=== PATIENT | female | born 1980 | race Caucasian/White ===

== ENCOUNTER 2016-06-11 23:44 | Emergency (ER) | payer OTHER ==
[~2016-06-11] VITALS: Ht 165.1 cm; Wt 174.3 kg
[~2016-06-11 23:44] MED LIST: ADVAIR 100-501 EACH IH; ADVAIR 250/501 DISK IH; ALBUTEROL RESCUE IH; ALBUTEROL SULF8.5 GM IH; ALBUTEROL17 GM IH; ALBUTEROL2.5 MG/0.5 IH; ATIVAN1 MG PO; BACTRIM,SEPT1 TABLET PO; BUPROPION XL150 MG PO; CEFDINIR300 MG PO; CITALOPRAM HBR20 MG PO; CLARITIN10 M3 PO; Ceftin PO; EFFEXOR XR37.5 MG PO; EFFEXOR75 MG PO; ENDOCET 5-3251 EACH PO; FLEXERIL10 MG PO; FLOVENT 22120 INHALA IH; IBUPROFEN800 MG PO; IRON325 M1 PO; IRON325 MG PO; KEFLEX500 MG PO; LABETALOL HCL100 MG PO; LABETALOL HCL200 MG PO; LEVAQUIN750 MG PO; MACRODANTIN100 MG PO; MOBIC15 MG PO; MOTRIN400 MG PO; MOTRIN600 MG PO; NAPROSYN500 MG PO; NITROFURANTOIN100 M3 PO; ORTHO TRI-CY1 TABLE1 PO; PEN-VEE K,VEET500 MG PO; PREDNISONE20 MG PO; PRENATAL TABLE1 EAC3 PO; PRILOSEC40 MG PO; PRINIVIL20 MG PO; PROMETHAZINE HC25 M1 PO; REGLAN5 MG PO; TAMIFLU75 MG PO; TESSALON PERLE100 MG PO; TRAZODONE HCL50 MG PO; ULTRAM50 MG PO; VITAMIN B-12 SC; VITAMIN D400 UNI4 PO; VOLTAREN75 MG PO; ZANTAC75 M1 PO; ZOFRAN ODT4 MG PO; ZOFRAN4 MG PO; ZOLPIDEM TARTRAT5 MG PO; Zithromax PO; [UNRECOGNIZED DRUG - REMARK]
[2016-06-12 00:43] LABS: EOSINOPHIL (%) 1.9 % (0-5); EOSINOPHIL COUNT 0.1 K/uL (0-0.3); HEMATOCRIT 35.2 % (36.0-46.0); IMMATURE GRANULOCYTE (%) 0.4 % (0.0-0.7); INSTRUMENT ABS NEUTROPHIL CT 3.2 K/uL; LYMPHOCYTE COUNT 1.7 K/uL (1.0-2.8); MCH 29.1 PG (29.0-34.0); MCHC 31.5 G/DL (30.0-36.0); MCV 92.4 FL (83-99); MEAN PLAT.VOLUME 11.4 uM^3 (9.5-12.4); MONOCYTE (%) 4.2 % (3-12); MONOCYTE COUNT 0.2 K/uL (0-0.8); NEUTROPHIL (%) 60.6 % (45-76); NEUTROPHIL COUNT 3.2 K/uL (1.8-6.4); PLATELET COUNT 206 K/uL (156-360); RBC DIS.WIDTH-CV 14.2 % (11.8-14.6); RBC DIS.WIDTH-SD 48.1 % (39-53); RED BLOOD COUNT 3.81 M/uL (3.80-5.20); WHITE BLOOD COUNT 5.2 K/uL (4.1-10.2)
[2016-06-12 00:54] LABS: D-DIMER ELISA 0.46 mg/L FEU (< 0.57)
[2016-06-12 01:04] LABS: CHLORIDE 108 mEq/L (99-109); POTASSIUM 4.1 mEq/L (3.7-5.4); SODIUM 136 mEq/L (136-147)
[2016-06-12 01:06] LABS: GLUCOSE 88 mg/dL (70-99)
[2016-06-12 01:07] LABS: ANION GAP 9 MEQ/L (2-14)
[2016-06-12 01:08] LABS: TOTAL BILIRUBIN 0.4 mg/dL (0.0-1.0)
[2016-06-12 01:09] LABS: ALKALINE PHOSPHATASE 158 IU/L (3-129)
[2016-06-12 01:10] LABS: GFR ESTIMATE (CALCULATED) > 59 mL/min/
[2016-06-12 01:11] LABS: DIRECT BILIRUBIN 0.2 mg/dL (0.0-0.3); UREA NITROGEN (BUN) 8 mg/dL (9-23)
[2016-06-12 01:13] LABS: LIPASE 12 U/L (1.0-51.0)
[2016-06-12] MEDS ORDERED: ZOFRAN4 MG PO (03:19)
[2016-06-12 04:14] VITALS: BP 141/84
== END 2016-06-12 04:19 | disposition home or self-care (01) ==
LOC: EME 23:44
PROVIDERS: Emergency Medicine
DX: R10.10 Upper abdominal pain, unspecified (principal); R11.0 Nausea; R19.7 Diarrhea, unspecified; E86.0 Dehydration; M79.604 Pain in right leg; E83.51 Hypocalcemia; Z86.718 Personal history of other venous thrombosis and embolism; R07.9 Chest pain, unspecified; M54.9 Dorsalgia, unspecified; R06.02 Shortness of breath; Z98.84 Bariatric surgery status
CPT/HCPCS: 71010; 71275; 74177; 80048; 80076; 83690; 85025; 85379; 93005; 93971; 99281; 99285; J2405; J3010; J7030

== ENCOUNTER 2016-09-23 18:20 | Emergency (ER) | payer OTHER ==
[~2016-09-23] VITALS: Ht 165.1 cm; Wt 173.5 kg
[2016-09-23] MEDS ORDERED: ZITHROMAX Z-PA250 MG PO (19:43)
[2016-09-23] MEDS ORDERED: VENTOLIN HFA18 GM IH (19:43)
[2016-09-23 20:01] VITALS: BP 147/89
== END 2016-09-23 20:08 | disposition home or self-care (01) ==
LOC: EME 18:20
DX: J20.9 Acute bronchitis, unspecified (principal); Z88.6 Allergy status to analgesic agent; Z90.49 Acquired absence of other specified parts of digestive tract
CPT/HCPCS: 71020; 94640; 99281; 99284

== ENCOUNTER 2017-02-18 16:53 | Emergency (ER) | payer OTHER ==
[~2017-02-18] VITALS: Ht 167.6 cm; Wt 163.6 kg
[~2017-02-18 16:53] MED LIST changes: +VENTOLIN HFA18 GM IH; +ZITHROMAX Z-PA250 MG PO
[2017-02-18 17:26] LABS: HEMATOCRIT 33.8 % (36.0-46.0); MCH 30.1 PG (29.0-34.0); MCHC 31.7 G/DL (30.0-36.0); MCV 95.2 FL (83-99); MEAN PLAT.VOLUME 10.7 uM^3 (9.5-12.4); PLATELET COUNT 228 K/uL (156-360); RBC DIS.WIDTH-CV 14.9 % (11.8-14.6); RBC DIS.WIDTH-SD 51.8 % (39-53); RED BLOOD COUNT 3.55 M/uL (3.80-5.20); WHITE BLOOD COUNT 6.8 K/uL (4.1-10.2)
[2017-02-18 17:36] LABS: CHLORIDE 106 mEq/L (99-109); POTASSIUM 3.7 mEq/L (3.7-5.4); SODIUM 141 mEq/L (136-147)
[2017-02-18 17:38] LABS: GLUCOSE 97 mg/dL (70-99)
[2017-02-18 17:39] LABS: ANION GAP 10 MEQ/L (2-14)
[2017-02-18 17:41] LABS: GFR ESTIMATE (CALCULATED) > 59 mL/min/
[2017-02-18 17:42] LABS: UREA NITROGEN (BUN) 10 mg/dL (9-23)
[2017-02-18 17:48] LABS: TROP-I INTERPRETATION NEGATIVE; TROPONIN-I < 0.01 ng/mL (0.0-0.30)
[2017-02-18] MEDS ORDERED: NORVASC2.5 MG PO (18:55)
[2017-02-18 19:24] VITALS: BP 179/89
== END 2017-02-18 19:24 | disposition home or self-care (01) ==
LOC: EME 16:53
DX: I10 Essential (primary) hypertension (principal); R60.0 Localized edema; M79.605 Pain in left leg; R07.9 Chest pain, unspecified; Z86.718 Personal history of other venous thrombosis and embolism; Z98.84 Bariatric surgery status
CPT/HCPCS: 71020; 80048; 84484; 85027; 93005; 93971; 99281; 99284

== ENCOUNTER 2017-02-20 20:00 | Emergency (ER) | payer OTHER ==
[~2017-02-20] VITALS: Ht 165.1 cm; Wt 176.4 kg
[~2017-02-20 20:00] MED LIST changes: +NORVASC2.5 MG PO
[2017-02-20 20:53] LABS: HEMATOCRIT 32.7 % (36.0-46.0); MCH 30.1 PG (29.0-34.0); MCHC 31.5 G/DL (30.0-36.0); MCV 95.6 FL (83-99); MEAN PLAT.VOLUME 10.6 uM^3 (9.5-12.4); PLATELET COUNT 223 K/uL (156-360); RBC DIS.WIDTH-CV 14.8 % (11.8-14.6); RBC DIS.WIDTH-SD 51.8 % (39-53); RED BLOOD COUNT 3.42 M/uL (3.80-5.20); WHITE BLOOD COUNT 6.8 K/uL (4.1-10.2)
[2017-02-20 21:01] LABS: CHLORIDE 107 mEq/L (99-109); POTASSIUM 3.9 mEq/L (3.7-5.4); SODIUM 137 mEq/L (136-147)
[2017-02-20 21:02] LABS: GLUCOSE 101 mg/dL (70-99)
[2017-02-20 21:04] LABS: ANION GAP 5 MEQ/L (2-14)
[2017-02-20 21:06] LABS: GFR ESTIMATE (CALCULATED) > 59 mL/min/
[2017-02-20 21:07] LABS: UREA NITROGEN (BUN) 9 mg/dL (9-23)
[2017-02-20] MEDS ORDERED: MICROZIDE12.5 M1 PO (22:04)
[2017-02-20] MEDS ORDERED: KEFLEX500 MG PO (22:04)
[2017-02-20 22:30] VITALS: BP 176/82
== END 2017-02-20 22:31 | disposition home or self-care (01) ==
LOC: EME 20:00
PROVIDERS: Physician Assistant
DX: L03.116 Cellulitis of left lower limb (principal); I10 Essential (primary) hypertension; J45.909 Unspecified asthma, uncomplicated; F32.9 Major depressive disorder, single episode, unspecified; Z86.718 Personal history of other venous thrombosis and embolism; F41.9 Anxiety disorder, unspecified; Z98.84 Bariatric surgery status; Z88.8 Allergy status to other drugs, medicaments and biological substances
CPT/HCPCS: 73590; 73630; 80048; 83880; 85027; 93005; 99281; 99284

== ENCOUNTER 2017-03-27 19:29 | Emergency (ER) | payer OTHER ==
[~2017-03-27] VITALS: Ht 165.1 cm; Wt 179.7 kg
[~2017-03-27 19:29] MED LIST changes: +MICROZIDE12.5 M1 PO
[2017-03-27] MEDS ORDERED: XARELTO15 MG PO (21:53)
[2017-03-27 22:13] VITALS: BP 168/96
== END 2017-03-27 22:14 | disposition home or self-care (01) ==
LOC: EME 19:29
DX: I82.442 Acute embolism and thrombosis of left tibial vein (principal); I83.93 Asymptomatic varicose veins of bilateral lower extremities; Z98.84 Bariatric surgery status; Z86.718 Personal history of other venous thrombosis and embolism
CPT/HCPCS: 93971; 99281; 99284

== ENCOUNTER 2017-04-16 15:19 | Emergency (ER) | payer OTHER ==
[~2017-04-16] VITALS: Ht 165.1 cm; Wt 167.8 kg
[~2017-04-16 15:19] MED LIST changes: +XARELTO15 MG PO
[2017-04-16 16:35] VITALS: BP 135/67
== END 2017-04-16 16:35 | disposition home or self-care (01) ==
LOC: EME 15:19
DX: J06.9 Acute upper respiratory infection, unspecified (principal); J45.909 Unspecified asthma, uncomplicated; I10 Essential (primary) hypertension; F41.9 Anxiety disorder, unspecified; F32.9 Major depressive disorder, single episode, unspecified; Z98.84 Bariatric surgery status; Z86.718 Personal history of other venous thrombosis and embolism; Z90.49 Acquired absence of other specified parts of digestive tract; Z88.5 Allergy status to narcotic agent; Z88.8 Allergy status to other drugs, medicaments and biological substances
CPT/HCPCS: 71046; 99281; 99284

== ENCOUNTER 2017-07-08 07:56 | Emergency (ER) | payer OTHER ==
[~2017-07-08] VITALS: Ht 165.1 cm; Wt 168.0 kg
[2017-07-08 10:20] VITALS: BP 145/95
== END 2017-07-08 10:21 | disposition home or self-care (01) ==
LOC: EME 07:56
DX: S60.222A Contusion of left hand, initial encounter (principal); S60.512A Abrasion of left hand, initial encounter; W23.0XXA Caught, crushed, jammed, or pinched between moving objects, initial encounter; Y99.0 Civilian activity done for income or pay; Z88.5 Allergy status to narcotic agent
CPT/HCPCS: 73130; 99281; 99283

== ENCOUNTER 2017-07-18 14:47 | Emergency (ER) | payer OTHER ==
[~2017-07-18] VITALS: Ht 165.1 cm; Wt 167.5 kg
[2017-07-18 17:00] VITALS: BP 151/89
== END 2017-07-18 17:15 | disposition home or self-care (01) ==
LOC: RME 14:47 → EME 14:47 → RME 17:15
DX: S69.92XD Unspecified injury of left wrist, hand and finger(s), subsequent encounter (principal); W23.0XXD Caught, crushed, jammed, or pinched between moving objects, subsequent encounter; I10 Essential (primary) hypertension; J45.909 Unspecified asthma, uncomplicated; F41.9 Anxiety disorder, unspecified; Z86.718 Personal history of other venous thrombosis and embolism; Z98.84 Bariatric surgery status; Z90.49 Acquired absence of other specified parts of digestive tract; Z88.5 Allergy status to narcotic agent
CPT/HCPCS: 99281; 99283

== ENCOUNTER 2017-07-24 18:01 | Emergency (ER) | payer OTHER ==
[~2017-07-24] VITALS: Ht 162.6 cm; Wt 167.6 kg
[2017-07-24 19:16] VITALS: BP 153/104
== END 2017-07-24 19:16 | disposition home or self-care (01) ==
LOC: EXP 18:01 → EME 18:01 → EXP 19:16
DX: S60.222A Contusion of left hand, initial encounter (principal); W31.89XA Contact with other specified machinery, initial encounter; I10 Essential (primary) hypertension; Z98.84 Bariatric surgery status; Z86.2 Personal history of diseases of the blood and blood-forming organs and certain disorders involving the immune mechanism; Z86.718 Personal history of other venous thrombosis and embolism; Z88.5 Allergy status to narcotic agent; Z88.8 Allergy status to other drugs, medicaments and biological substances
CPT/HCPCS: 99281; 99284